=== PATIENT | female | born 1955 | race Caucasian/White ===

== ENCOUNTER 2017-08-28 09:28 | Emergency (ER) | payer BC ==
[~2017-08-28] VITALS: Ht 157.5 cm; Wt 45.6 kg
[2017-08-28 09:47] LABS: HEMATOCRIT 43.2 % (36.0-46.0); HEMOGLOBIN 14.9 G/DL (11.9-15.5); MCH 31.9 PG (29.0-34.0); MCHC 34.5 G/DL (30.0-36.0); MCV 92.5 FL (83-99); PLATELET COUNT 171 K/uL (156-360); RBC DIS.WIDTH-CV 12.4 % (11.8-14.6); RBC DIS.WIDTH-SD 42.5 % (39-53); RED BLOOD COUNT 4.67 M/uL (3.80-5.20); WHITE BLOOD COUNT 8.4 K/uL (4.1-10.2)
[2017-08-28 09:57] LABS: ALBUMIN 3.9 g/dL (3.2-4.8); CHLORIDE 96 mEq/L (99-109); POTASSIUM 3.6 mEq/L (3.7-5.4); SODIUM 133 mEq/L (136-147)
[2017-08-28 09:59] LABS: GLUCOSE 117 mg/dL (70-99)
[2017-08-28 10:00] LABS: TOTAL PROTEIN 7.2 g/dL (6.4-8.3)
[2017-08-28 10:01] LABS: TOTAL BILIRUBIN 0.5 mg/dL (0.0-1.0)
[2017-08-28 10:03] LABS: ALKALINE PHOSPHATASE 98 IU/L (3-129); CREATININE 0.8 mg/dL (0.6-1.3); GFR ESTIMATE (CALCULATED) > 59 mL/min/
[2017-08-28 10:04] LABS: UREA NITROGEN (BUN) 7 mg/dL (9-23)
[2017-08-28 10:05] LABS: AST (GOT) 27 IU/L (2-34)
[2017-08-28 10:06] LABS: ALT (GPT) 18 IU/L (3-49)
[2017-08-28 11:53] LABS: APPEARANCE CLEAR ((CLEAR)); BILIRUBIN NEGATIVE; BLOOD MODERATE; COLOR YELLOW ((YELLOW)); GLUCOSE (STRIP) NEGATIVE; KETONES 5; LEUKOCYTES NEGATIVE; NITRITE NEGATIVE; PROTEIN (STRIP) NEGATIVE; SPECIFIC GRAVITY 1.013 (1.000-1.030); UROBILINOGEN 0.2 MG/DL (0.2-1.0)
[2017-08-28 12:02] LABS: BACTERIA RARE /HPF; EPITHELIAL CELLS RARE /HPF; MUCUS TRACE /LPF; UCUL ADDED? NO; WHITE BLOOD CELLS 0-5 /HPF (0-5)
[2017-08-28] MEDS ORDERED: ZOFRAN4 MG PO (12:20)
[2017-08-28] MEDS ORDERED: BENTYL10 MG PO (12:20)
[2017-08-28 12:37] VITALS: BP 116/65
[2017-08-29] MEDS ORDERED: CIPRO500 MG PO (22:30)
[2017-08-29] MEDS ORDERED: FLAGYL500 MG PO (22:30)
[2017-08-29] MEDS ORDERED: BENTYL20 MG PO (22:30)
== END 2017-08-28 12:57 | disposition home or self-care (01) ==
LOC: EME 09:28
DX: K29.70 Gastritis, unspecified, without bleeding (principal); R10.30 Lower abdominal pain, unspecified
CPT/HCPCS: 80053; 81003; 85027; 99281; 99285; J0500; J1885; J2405; J7030

== ENCOUNTER 2017-08-29 19:01 | Emergency (ER) | payer BC ==
[~2017-08-29] VITALS: Ht 157.5 cm; Wt 45.9 kg
[~2017-08-29 19:01] MED LIST: BENTYL10 MG PO; ZOFRAN4 MG PO
[2017-08-29 20:19] LABS: HEMATOCRIT 37.7 % (36.0-46.0); HEMOGLOBIN 13.3 G/DL (11.9-15.5); MCHC 35.3 G/DL (30.0-36.0); MCV 90.8 FL (83-99); PLATELET COUNT 159 K/uL (156-360); RBC DIS.WIDTH-CV 12.4 % (11.8-14.6); RBC DIS.WIDTH-SD 41.3 % (39-53); RED BLOOD COUNT 4.15 M/uL (3.80-5.20); WHITE BLOOD COUNT 5.7 K/uL (4.1-10.2)
[2017-08-29 20:33] LABS: ALBUMIN 3.3 g/dL (3.2-4.8)
[2017-08-29 20:34] LABS: CHLORIDE 96 mEq/L (99-109); POTASSIUM 3.8 mEq/L (3.7-5.4); SODIUM 133 mEq/L (136-147)
[2017-08-29 20:36] LABS: GLUCOSE 107 mg/dL (70-99)
[2017-08-29 20:39] LABS: ALKALINE PHOSPHATASE 78 IU/L (3-129)
[2017-08-29 20:40] LABS: CREATININE 0.7 mg/dL (0.6-1.3); GFR ESTIMATE (CALCULATED) > 59 mL/min/
[2017-08-29 20:41] LABS: UREA NITROGEN (BUN) 6 mg/dL (9-23)
[2017-08-29 20:47] LABS: TOTAL BILIRUBIN 0.7 mg/dL (0.0-1.0)
[2017-08-29 20:48] LABS: ALT (GPT) 38 IU/L (3-49); AST (GOT) 61 IU/L (2-34)
[2017-08-29] MEDS ORDERED: FLAGYL500 MG PO (22:30)
[2017-08-29] MEDS ORDERED: CIPRO500 MG PO (22:30)
[2017-08-29] MEDS ORDERED: BENTYL20 MG PO (22:30)
[2017-08-29 23:34] VITALS: BP 109/64
== END 2017-08-29 23:33 | disposition home or self-care (01) ==
LOC: EME 19:01
PROVIDERS: Nurse Practitioner Family
DX: A09 Infectious gastroenteritis and colitis, unspecified (principal); J98.11 Atelectasis
CPT/HCPCS: 74177; 80053; 85027; 87502; 99281; 99285; J2405; J7030